=== PATIENT | female | born 1965 | race Caucasian/White ===

== ENCOUNTER 2019-01-13 00:24 | Emergency (ER) | payer MEDICARE, OTHER ==
[2019-01-13] MEDS: KETOROLAC 60 MG INJ IM (05:25)
== END 2019-01-13 05:42 | disposition home or self-care (01) ==
LOC: FTE 00:24
DX: J01.40 Acute pansinusitis, unspecified (principal); E11.9 Type 2 diabetes mellitus without complications; I10 Essential (primary) hypertension; Z79.84 Long term (current) use of oral hypoglycemic drugs
CPT/HCPCS: 70486; 96372; 99285-25